=== PATIENT | female | born 1985 | race Caucasian/White ===

== ENCOUNTER 2020-02-11 17:52 | Emergency (ER) | payer BC ==
[~2020-02-11] VITALS: Ht 162.6 cm; Wt 168.5 kg
[2020-02-11 17:57] VITALS: BP 145/79
[2020-02-11] MEDS ORDERED: triamcinolone acetonide 40mg/ml inj IM ONE (18:40)
[2020-02-11] MEDS ORDERED: CIPR2.5D18 EACHEYE (18:48)
[2020-02-11] MEDS ORDERED: PRED20TA PO (19:09)
[2020-02-11] MEDS ORDERED: proparacaine 0.5% ophthalmic drops 15ml EACHEYE ONE (19:10)
== END 2020-02-11 19:22 | disposition home or self-care (01) ==
LOC: ER 17:53
DX: H10.13 Acute atopic conjunctivitis, bilateral (principal); Z79.899 Other long term (current) drug therapy
CPT/HCPCS: 96372; 99283; J3301

== ENCOUNTER 2020-10-18 07:30 | Emergency (ER) | payer BC ==
[~2020-10-18] VITALS: Ht 162.6 cm; Wt 163.6 kg
[2020-10-18 07:36] VITALS: BP 166/105
[2020-10-18] MEDS ORDERED: triamcinolone acetonide 40mg/ml inj IM ONE (09:45)
[2020-10-18] MEDS ORDERED: proparacaine 0.5% ophthalmic drops 15ml EACHEYE ONE (09:45)
[2020-10-18] MEDS ORDERED: dexamethasone 4mg/ml inj IV ONE (10:15)
[2020-10-18] MEDS ORDERED: ibuprofen tablet 400 MG TABLET PO ONE (10:45)
[2020-10-18] MEDS ORDERED: IBUP-1984 PO (11:38)
[2020-10-18] MEDS ORDERED: PRED20TA PO (11:38)
== END 2020-10-18 11:49 | disposition home or self-care (01) ==
LOC: ER 07:31
DX: H10.13 Acute atopic conjunctivitis, bilateral (principal)
CPT/HCPCS: 96374; 99283; J1100

== ENCOUNTER 2021-10-10 14:07 | Emergency (ER) | payer BC ==
[~2021-10-10] VITALS: Ht 162.6 cm; Wt 176.4 kg
[2021-10-10] MEDS ORDERED: proparacaine 0.5% ophthalmic drops 15ml EACHEYE ONE (16:25)
[2021-10-10] MEDS ORDERED: CIPR2.5D21 OT (17:32)
[2021-10-10] MEDS ORDERED: predniSONE 20 mg tablet PO ONE (17:35)
[2021-10-10 17:47] VITALS: BP 141/84
== END 2021-10-10 17:51 | disposition home or self-care (01) ==
LOC: ER 14:07
DX: H10.13 Acute atopic conjunctivitis, bilateral (principal)
CPT/HCPCS: 99283; J7512